=== PATIENT | female | born 1995 | race Hispanic/Latino ===

== ENCOUNTER 2016-12-26 08:31 | Inpatient (IN) | payer OTHER ==
[~2016-12-26] VITALS: Ht 157.5 cm; Wt 63.5 kg
[2016-12-26 08:52] VITALS: BP 135/82
[2016-12-26] MEDS ORDERED: PRENATABS RX T1 EACH PO (08:53)
[2016-12-26 09:51] LABS: ABSOLUTE BASOPHIL COUNT 0.1 /CUMM (0.0-0.2); ABSOLUTE EOSINOPHIL COUNT 0.1 /CUMM (0.0-0.7); ABSOLUTE LYMPH COUNT 2.2 /CUMM (1.2-3.4); ABSOLUTE MONOCYTE COUNT 0.4 /CUMM (0.10-0.60); BASOPHIL % 0.8 % (0.0-2.0); EOSINOPHIL % 1.5 % (0-5); GRANULOCYTE % 58.4 % (42.2-75.2); HEMATOCRIT 35.1 % (37-47); MEAN CORPUSCULAR HGB 29.8 PG (27.0-31.0); MEAN CORPUSCULAR HGB CONC 33.3 G/DL (33.0-37.0); MEAN CORPUSCULAR VOLUME 89.4 FL (81.0-99.0); PLATELET COUNT 201 /CUMM (130-400); RBC DISTRIBUTION WIDTH 14.6 % (11.5-14.5); RED BLOOD CELL CT 3.92 /CUMM (4.20-5.40); WHITE BLOOD CELL COUNT 6.8 /CUMM (4.8-10.8)
--- NOTE | 2016-12-26 18:22 | History & Physical ---
General Information and HPI MD Statement: I have seen and personally examined FRENCH COLMENARES and documented this H&P. The patient is a 21 year old female at [40] weeks and 1[] days gestation who presented with a chief complaint of induction of labor []. History of Present Illness: The patient is complete care and has a large baby for her pelvis and we have decided to bring her in for induction of labor. She has a poor Thomas score she will be starting with misoprostol cervical ripening. weight is 7-1/2 pounds Allergies/Medications Allergies: Coded Allergies: No Known Allergies (12/26/16) Home Med list Vit #76/Iron,Carb/FA (Prenatabs Rx Tablet) 29 MG IRON-1 MG TABLET 1 TAB PO DAILY (Reported) Past History sports director History : 1 Para: 0 Last Menstrual Period: 03/20/2016 Estimated Delivery Date: 12/25/2016 Past sports director History: none Surgical History Pertinent Surgical History: none (and) Past Family/Social History Psychosocial History Smoking Status: Never Smoked Review of Systems Review of Systems Constitutional: Reports: no symptoms. EENTM: Reports: no symptoms. Cardiovascular: Reports: no symptoms. Respiratory: Reports: no symptoms. GI: Reports: no symptoms. Genitourinary: Reports: no symptoms. Musculoskeletal: Reports: no symptoms. Skin: Reports: no symptoms. Neurological/Psychological: Reports: no symptoms. Hematologic/Endocrine: Reports: no symptoms. Immunologic/Allergic: Reports: no symptoms. All Other Systems: Reviewed and Negative Exam & Diagnostic Data Last 24 Hrs of Vital Signs/I&O Vital Signs Date Time Temp Pulse Resp B/P B/P Pulse O2 O2 Flow FiO2 Mean Ox Delivery Rate 12/26 0852 135/82 Intake & Output 12/26 1600 12/26 0800 12/26 0000 Intake Total Output Total Balance Patient 140 lb Weight Obstetric Exam Wgt Gained During : 30 Pelvimetry: Gynecoid Dilation (cm): 0 Effacement (%): 0 Station: -2 Membranes: intact Fluid: unknown Fundal Height (cm): 40 Multiple Gestation? No Contractions: None Infant #1 - FHR Baseline: 140 Category: 1 Estimated Weight: 7.5 Presentation: Cephalic Patient for Induction? Yes Physical Exam: HEENT: Normocephalic atraumatic Chest: Clear to auscultation bilaterally Cardiovascular: Normal S1-S2 abdomen: Gravid, cephalic, estimated weight 7 -1/2 pounds Cervix: Long thick closed posterior Extremities: No clubbing cyanosis or edema Neurologic: Nonfocal Labs Blood Type & Rh: B pos Antibody Screen: neg Hct/Hgb & Platelets #1: 38/266 Hct/Hgb & Platelets #2: 259 Rubella: imm VDRL #1: nr VDRL #2: nr HbsAg: neg HIV #1: neg HIV #2 neg 1 Hr P Group B Strep: neg Initial Ultrasound: wnl Anatomy Ultrasound: wnl Ultrasound for EFW: 7 Genetic Testing: neg Assessment/Plan Assessment/Plan: 40w1d poor Thomas score cervical ripeniong with miso As Ranked By This Provider Problem List: 1. Core Measures/Miscellaneous Venous Thromboembolism VTE Risk Factors: / VTE Contraindications: No Contraindications VTE Diagnosis: No Beta Nile Is Beta Nile a Home Med? No Antibiotics Is Patient on Antibiotics? No
--- NOTE | 2016-12-26 23:02 | Labor & Delivery Summary ---
Delivery Summary Vaginal Delivery: Vaginal: spontaneous Episiotomy/Lacerations: Episiotomy/Lacerations: epis Type: rml Repair: 3-0 layer Anesthesia: epilocal Placenta: Placenta: spontanteous, normal, 3 vessel, nuchal cord (x_) Anesthesia: epi Baby's Weight: P STS Apgars - 1 Min: 8 Apgars - 5 Min: 9
[2016-12-27 06:26] LABS: ABSOLUTE BASOPHIL COUNT 0 /CUMM (0.0-0.2); ABSOLUTE EOSINOPHIL COUNT 0 /CUMM (0.0-0.7); ABSOLUTE GRANULOCYTE CT 11.6 /CUMM (1.4-6.5); ABSOLUTE LYMPH COUNT 1.7 /CUMM (1.2-3.4); BASOPHIL % 0.2 % (0.0-2.0); EOSINOPHIL % 0 % (0-5); GRANULOCYTE % 81.2 % (42.2-75.2); MEAN CORPUSCULAR HGB CONC 33.3 G/DL (33.0-37.0); MEAN PLATELET VOLUME 7.8 FL (7.4-10.4); PLATELET COUNT 163 /CUMM (130-400); RBC DISTRIBUTION WIDTH 14.4 % (11.5-14.5); RED BLOOD CELL CT 3.04 /CUMM (4.20-5.40)
[2016-12-27 06:29] LABS: HEMATOCRIT 27.3 % (37-47); WHITE BLOOD CELL COUNT 14.3 /CUMM (4.8-10.8)
--- NOTE | 2016-12-27 09:00 | PN- Post Delivery/GYN ---
Subjective Subjective: VULVAR SWELLING Review of Systems: NEG Objective Last 24 Hrs of Vital Signs/I&O VSS Physical Exam: FF VULVAR EDEMA; EPIS INTACT EXT NT Assessment/Plan Assessment/Plan S/P PPD1 KEEP OLEARY 8 MORE HR; AND DISCONTINUE Problem List: 1.
[2016-12-28] MEDS ORDERED: IBUPROFEN800 M1 PO (08:20)
[2016-12-28] MEDS ORDERED: DOCUSATE SODIU100 M3 PO (08:20)
[2016-12-28] MEDS ORDERED: PERCOCET 5-3251 EACH PO (08:20)
== END 2016-12-28 13:00 | DRG 775 ==
LOC: GNO 08:31
PROVIDERS: ADMIT Obstetrics & Gynecology
PROC: 0W8NXZZ Division of Female Perineum, External Approach (ICD-10-PCS; principal; 2016-12-26)
PROC: 10E0XZZ Delivery of Products of Conception, External Approach (ICD-10-PCS; principal; 2016-12-26)
PROC: 3E0P7GC Introduction of Other Therapeutic Substance into Female Reproductive, Via Natural or Artificial Opening (ICD-10-PCS; principal; 2016-12-26)
DX: O69.81X0 Labor and delivery complicated by cord around neck, without compression, not applicable or unspecified (principal); Z37.0 Single live birth; Z3A.40 40 weeks gestation of pregnancy
CPT/HCPCS: GNOP; GNOS; 36415; 81001; 87086; J7120